=== PATIENT | male | born 1940 | race Caucasian/White ===

== ENCOUNTER → 2017-09-26 | Outpatient (CLI) | payer OTHER ==
[~2017-09-26] MED LIST: ATORVASTATIN CA20 MG PO; AUGMENTIN 500-1 EACH PO; CEFTIN500 MG PO; COUMADIN3 MG PO; COUMADIN7.5 MG PO; DIGOXIN125 MCG PO; FLUOXETINE HCL20 MG PO; FUROSEMIDE40 MG PO; GABAPENTIN100 MG PO; HYDROCODON-ACE1 EAC9 PO; LEVOTHYROXINE50 MCG PO; MAGNESIUM OXID400 MG PO; MELOXICAM7.5 MG PO; METFORMIN HCL500 MG PO; METOPROLOL SUCC50 MG PO; METOPROLOL TART25 MG PO; NEXIUM40 MG; NEXIUM40 MG PO; POTASSIUM99 M1 PO; PREDNISONE5 MG PO; PROMETHAZINE HC25 M1 PO; SIMVASTATIN20 MG PO; TAMSULOSIN HCL0.4 MG PO; TRILPIX PO; TYLENOL WITH C1 EACH PO; WARFARIN SODIU2.5 MG PO; WARFARIN SODIUM3 MG PO; WARFARIN SODIUM5 MG PO; ZYTIGA250 MG PO
[2017-09-26 15:57] LABS: ANION GAP 17.6 mmol/L (8-16); BLOOD UREA NITROGEN 13 mg/dL (7-26); BUN/CREATININE RATIO 16 (6-25); CALCIUM 8.7 mg/dL (8.4-10.2); CARBON DIOXIDE 27 mmol/L (22-29); CHLORIDE 99 mmol/L (98-107); CREATININE, SERUM 0.79 mg/dL (0.72-1.25); EST GLOMERULAR FILTRATION RATE > 60 ML/MIN (60-); GLUCOSE 149 mg/dL (74-118); POTASSIUM 3.6 mmol/L (3.5-5.1); SODIUM 140 mmol/L (136-145)
[2017-09-26 16:00] LABS: BASOPHILS % 0.2 % (0.0-1.0); EOSINOPHILS # (AUTO) 0.1 (0.0-0.4); EOSINOPHILS % 0.8 % (0.0-6.0); HEMATOCRIT 29.7 % (38.2-49.6); LYMPHOCYTES # (AUTO) 0.7 (1.0-3.2); LYMPHOCYTES % 7.5 % (18.0-39.1); MEAN CORPUSCULAR HEMOGLOBIN 38.7 pg (28-32); MEAN CORPUSCULAR VOLUME 104.6 fL (81-99); MONOCYTES # (AUTO) 0.8 (0.2-0.8); MONOCYTES % 8.2 % (4.4-11.3); NEUTROPHILS # (AUTO) 8.1 (2.1-6.9); NEUTROPHILS % 82.4 % (38.7-80.0); PLATELET COUNT 245 x10e3/uL (140-360); RED BLOOD COUNT 2.84 x10e6/uL (4.3-5.7)
== END ==
LOC: NPA 12:00
DX: Z02.89 Encounter for other administrative examinations (principal)
CPT/HCPCS: 36415; 80048; 85025

== ENCOUNTER → 2017-09-30 | Outpatient (CLI) | payer OTHER ==
[2017-09-30 16:29] LABS: ANION GAP 15.5 mmol/L (8-16); BLOOD UREA NITROGEN 14 mg/dL (7-26); BUN/CREATININE RATIO 17 (6-25); CALCIUM 8.3 mg/dL (8.4-10.2); CARBON DIOXIDE 30 mmol/L (22-29); CHLORIDE 97 mmol/L (98-107); CREATININE, SERUM 0.84 mg/dL (0.72-1.25); EST GLOMERULAR FILTRATION RATE > 60 ML/MIN (60-); GLUCOSE 182 mg/dL (74-118); POTASSIUM 3.5 mmol/L (3.5-5.1); SODIUM 139 mmol/L (136-145)
[2017-09-30 16:36] LABS: BASOPHILS % 0.1 % (0.0-1.0); EOSINOPHILS # (AUTO) 0.1 (0.0-0.4); EOSINOPHILS % 1.2 % (0.0-6.0); HEMATOCRIT 35.1 % (38.2-49.6); HEMOGLOBIN 11.5 g/dL (14.0-18.0); LYMPHOCYTES # (AUTO) 0.5 (1.0-3.2); LYMPHOCYTES % 6.8 % (18.0-39.1); MEAN CORPUSCULAR HEMOGLOBIN 29.7 pg (28-32); MEAN CORPUSCULAR HGB CONC 32.8 g/dL (31-35); MEAN CORPUSCULAR VOLUME 90.7 fL (81-99); MONOCYTES # (AUTO) 0.4 (0.2-0.8); NEUTROPHILS # (AUTO) 6.3 (2.1-6.9); NEUTROPHILS % 86.4 % (38.7-80.0); PLATELET COUNT 219 x10e3/uL (140-360); RED BLOOD COUNT 3.87 x10e6/uL (4.3-5.7); RED CELL DISTRIBUTION WIDTH 14.6 % (11.7-14.4)
== END ==
LOC: NPA 15:12
DX: Z02.9 Encounter for administrative examinations, unspecified (principal)
CPT/HCPCS: 36415; 80048; 85025

== ENCOUNTER → 2017-10-01 | Outpatient (CLI) | payer OTHER ==
[2017-10-01 17:38] LABS: INR 4.55; PROTHROMBIN TIME 45.6 seconds (11.9-14.5)
== END ==
LOC: NPA 11:30
DX: Z02.9 Encounter for administrative examinations, unspecified (principal)
CPT/HCPCS: 36415; 85610

== ENCOUNTER → 2017-10-02 | Outpatient (CLI) | payer OTHER ==
[2017-10-02 15:50] LABS: INR 1.23; PROTHROMBIN TIME 16.1 seconds (11.9-14.5)
== END ==
LOC: NPA 10:18
DX: Z02.89 Encounter for other administrative examinations (principal)
CPT/HCPCS: 36415; 85610

== ENCOUNTER → 2017-10-03 | Outpatient (CLI) | payer OTHER ==
[2017-10-03 18:16] LABS: INR 1.24; PROTHROMBIN TIME 16.3 seconds (11.9-14.5)
== END ==
LOC: NPA 11:25
DX: Z02.89 Encounter for other administrative examinations (principal)
CPT/HCPCS: 36415; 85610

== ENCOUNTER → 2017-10-07 | Outpatient (CLI) | payer OTHER ==
[2017-10-07 17:40] LABS: BASOPHILS % 0.2 % (0.0-1.0); EOSINOPHILS # (AUTO) 0.1 (0.0-0.4); EOSINOPHILS % 1.2 % (0.0-6.0); HEMATOCRIT 36.7 % (38.2-49.6); HEMOGLOBIN 12.8 g/dL (14.0-18.0); LYMPHOCYTES # (AUTO) 1.4 (1.0-3.2); LYMPHOCYTES % 14.9 % (18.0-39.1); MEAN CORPUSCULAR HEMOGLOBIN 32.8 pg (28-32); MEAN CORPUSCULAR HGB CONC 34.9 g/dL (31-35); MEAN CORPUSCULAR VOLUME 94.1 fL (81-99); MONOCYTES # (AUTO) 0.5 (0.2-0.8); MONOCYTES % 5.2 % (4.4-11.3); NEUTROPHILS # (AUTO) 7.1 (2.1-6.9); NEUTROPHILS % 77.1 % (38.7-80.0); PLATELET COUNT 363 x10e3/uL (140-360); RED CELL DISTRIBUTION WIDTH 18.2 % (11.7-14.4)
[2017-10-07 17:56] LABS: INR 1.08; PROTHROMBIN TIME 14.6 seconds (11.9-14.5)
== END ==
LOC: NPA 11:30
DX: Z02.89 Encounter for other administrative examinations (principal)
CPT/HCPCS: 36415; 85025; 85610

== ENCOUNTER → 2017-10-08 | Outpatient (CLI) | payer OTHER ==
[2017-10-08 17:08] LABS: ANION GAP 24.2 mmol/L (8-16); BASOPHILS % 0.3 % (0.0-1.0); CREATININE, SERUM 1.31 mg/dL (0.72-1.25); EOSINOPHILS # (AUTO) 0.1 (0.0-0.4); HEMATOCRIT 38.8 % (38.2-49.6); HEMOGLOBIN 12.8 g/dL (14.0-18.0); LYMPHOCYTES # (AUTO) 1.9 (1.0-3.2); LYMPHOCYTES % 15.8 % (18.0-39.1); MEAN CORPUSCULAR HEMOGLOBIN 29.6 pg (28-32); MEAN CORPUSCULAR VOLUME 89.8 fL (81-99); MONOCYTES # (AUTO) 0.6 (0.2-0.8); MONOCYTES % 5.1 % (4.4-11.3); NEUTROPHILS # (AUTO) 9.1 (2.1-6.9); NEUTROPHILS % 76.4 % (38.7-80.0); PLATELET COUNT 410 x10e3/uL (140-360); POTASSIUM 4.2 mmol/L (3.5-5.1); RED BLOOD COUNT 4.32 x10e6/uL (4.3-5.7); RED CELL DISTRIBUTION WIDTH 14.2 % (11.7-14.4)
== END ==
LOC: NPA 14:56
DX: Z02.89 Encounter for other administrative examinations (principal)
CPT/HCPCS: 36415; 80048; 85025

== ENCOUNTER → 2017-10-10 | Outpatient (CLI) | payer OTHER ==
[2017-10-10 17:31] LABS: INR 1.04; PROTHROMBIN TIME 14.1 seconds (11.9-14.5)
== END ==
LOC: NPA 11:30
DX: Z02.89 Encounter for other administrative examinations (principal)
CPT/HCPCS: 36415; 85610

== ENCOUNTER → 2017-10-14 | Outpatient (CLI) | payer OTHER | LOC: NPA 15:05 | DX: Z02.89 Encounter for other administrative examinations (principal) ==

== ENCOUNTER → 2017-10-17 | Outpatient (CLI) | payer OTHER ==
[2017-10-17 12:05] LABS: INR 1.04; PROTHROMBIN TIME 12.8 seconds (11.9-14.5)
== END ==
LOC: NPA 10:00
DX: Z02.89 Encounter for other administrative examinations (principal)
CPT/HCPCS: 36415; 85610